=== PATIENT | male | born 1980 | race Caucasian/White ===

== ENCOUNTER 2020-09-16 06:29 | Day surgery (SDC) | payer MEDICAID, SELFPAY ==
[~2020-09-16] VITALS: Ht 180.3 cm; Wt 104.3 kg
[2020-09-16] MEDS ORDERED: SIMETHICONE 40 MG/0.6 ML ML ONE (07:22)
[2020-09-16] MEDS: MIDAZOLAM HCL 5 MG/5 ML VIAL ONE ×2 (08:15→08:18)
[2020-09-16] MEDS: MEPERIDINE 100 MG INJ. 100 MG/ML VIAL ONE ×2 (08:15→08:18)
[2020-09-16] MEDS ORDERED: BENZOCAINE 20% 0.5mL UD SPRAY MM ONE (08:18)
[2020-09-16 09:58] VITALS: BP_SYST 112
== END 2020-09-16 09:45 | disposition home or self-care (01) ==
LOC: SDS 06:29 → SMU 06:38 → SDS 09:45
PROVIDERS: ATTEND Internal Medicine
DX: R10.9 Unspecified abdominal pain (principal); K56.609 Unspecified intestinal obstruction, unspecified as to partial versus complete obstruction; K52.9 Noninfective gastroenteritis and colitis, unspecified; K29.70 Gastritis, unspecified, without bleeding; K29.80 Duodenitis without bleeding; Z20.828 Contact with and (suspected) exposure to other viral communicable diseases; Z79.899 Other long term (current) drug therapy
CPT/HCPCS: 43239; 45378; 88305; 88312; 88313; 99152; 99153; G0378; J2175; J2250; J7030; U0003